=== PATIENT | male | born 1970 | race Caucasian/White ===

== ENCOUNTER 2017-07-29 22:35 | Emergency (ER) | payer OTHER, MEDICARE ==
[~2017-07-29] VITALS: Ht 170.2 cm; Wt 90.0 kg
[~2017-07-29 22:35] MED LIST: ASPI81CH CHEW; LEVEMIR SQ; LISI2.5T3 PO; LURA1TAB2 PO; PANT40TA3 PO; PARO20TA2 PO; TAMS0.4C4 PO; TRAZ100T4 PO; VERA180T35 PO; ZETI10TA5 PO
[2017-07-29 22:37] VITALS: BP 136/89; PULSE 97; RESP 16; TEMP 98.4; O2SAT 97
[2017-07-29] MEDS ORDERED: CYCLOBENZAPRINE HCL 10 MG TAB PO ONE (23:00)
[2017-07-29] MEDS ORDERED: IBUPROFEN 800 MG TAB PO ONE (23:00)
[2017-07-29] MEDS ORDERED: CYCL1TAB29 PO (23:07)
[2017-07-29] MEDS ORDERED: MELO-1 PO (23:07)
--- NOTE | 2017-07-29 23:08 | PD ---
HPI Chief Complaint: Back/ Neck Pain or Injury Time Seen by Provider: 22:44 Travel History International Travel<30 days: No Contact w/Intl Traveler<30days: No Traveled to known affect area: No History of Present Illness HPI Patient is a 47-year-old male presenting to the emergency department for evaluation of left lower back pain that started this morning. Patient denies any injury or trauma. He states when he woke up pain was there. He states the pain radiates down the back of his leg. He denies any weakness, bladder or bowel incontinence, saddle paresthesia. He reports the pain as a 6 out of 10. Patient states that he's been laying in bed all day. states that she has to help him get out of bed because of the pain. Patient is ambulatory in the emergency department. PFSH Past Medical History Bipolar Disorder: Yes Depression: Yes Heart Rhythm Problems: Yes High Cholesterol: Yes Diabetes: Yes Patient Takes Glucophage: Yes (metformin 07/29/171999) Diminished Hearing: No GERD: Yes Hypertension: Yes Past Surgical History Cholecystectomy: Yes Tonsillectomy: Yes Social History Alcohol Use: No Tobacco Use: No Substance Use: No Allergies-Medications (Allergen,Severity, Reaction): Coded Allergies: rosuvastatin (Unverified Allergy, Unknown, UNKNOWN, 07/29/17) CHOLESTEROL MEDS ALLERGY Reported Meds & Prescriptions Reported Meds & Active Scripts Active Reported Levemir Inj (Insulin Detemir) 1,000 unit/ 10 ML Vial 32 Units SQ HS Do not mix with any other Insulin. Lisinopril 2.5 Mg Tab 2.5 Mg PO DAILY Zetia (Ezetimibe) 10 Mg Tab 10 Mg PO DAILY Aspirin 81 Mg Chew 81 Mg CHEW DAILY Tamsulosin (Tamsulosin HCl) 0.4 Mg Cap 0.4 Mg PO HS Paroxetine (Paroxetine HCl) 20 Mg Tab 20 Mg PO DAILY Trazodone (Trazodone HCl) 100 Mg Tab 200 Mg PO HS Pantoprazole (Pantoprazole Sodium) 40 Mg Tab 40 Mg PO DAILY Latuda (Lurasidone) 60 Mg Tab 60 Mg PO DAILY Verapamil SR (Verapamil HCl) 180 Mg Tab 180 Mg PO DAILY Review of Systems Except as stated in HPI: all other systems reviewed are Neg Musculoskeletal: Positive: Myalgias, Cramping Neurologic: Positive: Sensory Disturbance, No: Focal Abnormalities, Coordination Problem Physical Exam Narrative GENERAL: Well-developed, well-nourished, alert male. Resting comfortably in no acute distress. SKIN: Warm and dry. HEAD: Atraumatic. Normocephalic. EYES: Pupils equal and round. No scleral icterus. No injection or drainage. ENT: No nasal bleeding or discharge. Mucous membranes pink and moist. NECK: Trachea midline. No JVD. CARDIOVASCULAR: Regular rate and rhythm. RESPIRATORY: No accessory muscle use. Clear to auscultation. Breath sounds equal bilaterally. GASTROINTESTINAL: Abdomen soft, non-tender, nondistended. Hepatic and splenic margins not palpable. MUSCULOSKELETAL: Extremities without clubbing, cyanosis, or edema. No obvious deformities. NEUROLOGICAL: Awake and alert. No obvious cranial nerve deficits. Motor grossly within normal limits. Five out of 5 muscle strength in the arms and legs. Normal speech. PSYCHIATRIC: Appropriate mood and affect; insight and judgment normal. BACK: No CVA tenderness. No rash. No point tenderness on palpation of the spine. Tenderness to palpation over left SI joint and left paraspinal musculature in the lumbar region. Data Data Last Documented VS Vital Signs Date Time Temp Pulse Resp B/P (MAP) Pulse Ox O2 Delivery O2 Flow Rate FiO2 07/29/17 22:37 98.4 97 16 136/89 (105) 97 Room Air Orders Orders Ibuprofen (Motrin) (07/29/17 23:00) Cyclobenzaprine (Flexeril) (07/29/17 23:00) [facility] Medical Decision Making Medical Screen Exam Complete: Yes Emergency Medical Condition: Yes Interpretation(s) Vital Signs Date Time Temp Pulse Resp B/P (MAP) Pulse Ox O2 Delivery O2 Flow Rate FiO2 07/29/17 22:37 98.4 97 16 136/89 (105) 97 Room Air Differential Diagnosis Strain versus spasm versus discogenic pain versus sciatica versus other Narrative Course Patient is a 47-year-old male presenting to the emergency department for evaluation of left lower back pain that started this morning. Patient has no focal deficits on exam. Patient's vital signs are stable. Exam findings are consistent with sciatica, patient has been taking Tylenol without relief. He was given ibuprofen and Flexeril in the emergency department. He was encouraged to avoid bed rest, apply warm moist heat to the affected area, perform gentle range of motion exercises. Follow-up with your primary doctor, take medications as directed. He may return to emergency department for any new or worsening symptoms. Diagnosis Primary Impression: Sciatica Qualified Codes: M54.32 - Sciatica, left side Referrals: Primary Care Physician Patient Instructions: General Instructions, Sciatica (ED) Additional Instructions: Take medications as directed Follow-up with your primary doctor Apply warm heat to the affected area, avoid bed rest, performed gentle range of motion exercises Return to emergency department for any new or worsening symptoms Med/Other Pt SpecificInfo: Prescription(s) given Scripts Cyclobenzaprine (Flexeril) 10 Mg Tab 10 MG PO TID Y for MUSCLE SPASM, #30 TAB 0 Refills Prov: Caren Esquivel 07/29/17 Meloxicam (Meloxicam) 15 Mg Tab 15 MG PO DAILY Y for PAIN SCALE 1 TO 10, #7 TAB 0 Refills Prov: Caren Esquivel 07/29/17 Disposition: 01 DISCHARGE HOME Condition: Stable Caren Esquivel Jul 29, 2017 23:08
== END 2017-07-29 23:25 | disposition home or self-care (01) ==
LOC: NEPK 22:35
DX: M54.32 Sciatica, left side (principal); E11.9 Type 2 diabetes mellitus without complications; I10 Essential (primary) hypertension; E78.00 Pure hypercholesterolemia, unspecified; Z79.4 Long term (current) use of insulin; Z86.59 Personal history of other mental and behavioral disorders; Z86.79 Personal history of other diseases of the circulatory system; Z87.19 Personal history of other diseases of the digestive system
CPT/HCPCS: 99284